=== PATIENT | male | born 1995 | race Hispanic/Latino ===

== ENCOUNTER → 2025-01-28 | Outpatient (CLI) | payer OTHER ==
--- NOTE | 2025-01-28 10:28 | HMCIMG ---
ULTRASOUND ABDOMEN LIMITED ULTRASOUND ABDOMEN VASCULAR INDICATION: Right upper abdominal pain COMPARISON: None FINDINGS: The liver is normal in size and slightly increased in echogenicity; no focal lesion demonstrated. Main portal vein is patent, and normal direction of vascular flow demonstrated. The common bile duct diameter measures 3.0 mm. No evidence for calculi, sludge or pericholecystic fluid. No sonographic Vega's sign elicited by the ultrasound flexo press operator. Wall thickness measures 2.0 mm. Visible portions of the pancreas appear normal. The right kidney measures 10.1 x 3.8 x 4.5 cm,and is normal in echogenicity, without evidence for hydronephrosis.No shadowing stones demonstrated. Velocities in centimeters/sec: Splenic vein = 20, left hepatic vein = 32, middle hepatic vein = 21, right hepatic vein = 21, main portal vein = 18 with hepatopedal flow, and hepatic artery = 50 with RI = 0.7. No free fluid demonstrated. IMPRESSION: Findings suggesting mild hepatic steatosis.
== END | disposition home or self-care (01) ==
LOC: EEVIPCON 09:07 → RAH 09:07
PROVIDERS: ATTEND Family Medicine
DX: B19.20 Unspecified viral hepatitis C without hepatic coma (principal)
CPT/HCPCS: 76705